=== PATIENT | male | born 1960 | race Caucasian/White ===

== ENCOUNTER → 2021-05-19 | Outpatient (CLI) | payer BC ==
--- NOTE | 2021-05-19 19:38 | CONS ---
CONSULTATION REASON FOR CONSULTATION: Sleep apnea. This is a very pleasant 60-year-old male patient was diagnosed having obstructive sleep apnea approximately 10 years ago. He follows up with Dr. Rodriguez , his primary care physician out of [place], [place]. During the course of the treatment, the patient has utilized 2 different CPAP machines and currently he is going through his second CPAP unit, which is a ResMed unit, a newer-generation ResMed APAP unit which is adjusted at a pressure minimum of 10, maximum of 15. He is also using a Mirage FX nasal mask. He is quite happy with the treatment. He is trying to establish himself in our office, knowing that he used to see a sleep specialist out of [place], [place]. He has no specific complaints. No snoring while on CPAP therapy. He is having some leaks around his nasal mask. I checked his compliance data, and based on a 30-day compliancy evaluation, the patient has utilized his machine for more than 4 hours 100% of the time, averaging around 7.9 hours of CPAP use per night. Average pressure delivered by the machine is around 12.6 cm of water. The leak has been on the order of 48 L/minute. His AHI is down to 0.8, indicating very successful treatment. His original diagnosis was established by [facility] and he gets his supplies through [facility], [place]. No recent weight gain. No hypersomnia or sleepiness. He goes to bed around 10 p.m., waking up at 9 a.m. in the morning. No drowsiness or sleepiness during the day. [place] score is only 7. No substance abuse. No alcoholism. No nocturnal chest pain, shortness of breath or restlessness in the lower extremities. No anxiety or depression. PAST MEDICAL HISTORY: LIZBETH, diabetes and hypertension. SURGICAL HISTORY: Surgical history includes knee surgery, shoulder repair and cholecystectomy. DRUG ALLERGIES: PENICILLIN. He is also allergic to BEE STINGS, and the patient carried with him an EpiPen. OUTPATIENT MEDICATION LIST: Outpatient medication list includes metformin 1 gram twice a day, 5, pioglitazone 30 mg 1 tablet a day, lisinopril 10 mg p.o. daily, Lipitor 20 mg p.o. daily, aspirin 81 mg p.o. daily, Pepcid 20 mg p.o. daily, naprosyn 220 mg on an as-needed basis. SOCIAL HISTORY: The patient is a nonsmoker. No history of alcoholism. No history of IV drugs. FAMILY HISTORY: Negative for any form of significant sleep breathing disorder. REVIEW OF SYSTEMS: Fourteen-point review of systems was done, and the positive findings are all mentioned above in the history of present illness. PHYSICAL EXAMINATION: VITAL SIGNS: BP is 130/81, pulse 79, respirations 16, temperature 97.4, saturation is 97% on room air. Height is 5 feet 11 inches, weight is 280. Neck size is 19 inches. [place] score is 7. BMI 39.8. GENERAL APPEARANCE: Calm, comfortable. HEAD: Atraumatic, normocephalic. NECK: Supple. No JVD. No goiter or neck masses. Mallampati class 4. LUNGS: Clear to auscultation. HEART: Heart sounds are regular rate and rhythm. Normal S1, S2. No S3, S4. No murmurs. ABDOMEN: Soft, nontender. No organomegaly. EXTREMITIES: No edema. No cyanosis or clubbing. NEUROLOGIC: Awake and alert. There is no focal neurological deficit. PSYCHIATRIC: Negative for anxiety or depression. IMPRESSION: 1. Obstructive sleep apnea, currently utilizing a ResMed APAP unit at a pressure minimum of 10, maximum of 15, utilizing a Metcalf FX nasal mask. 2. Chronic hypersomnia, recovered. 3. Diabetes mellitus. 4. Hypertension. PLAN: 1. Offer the patient an AirFit N20 unit, a medium-sized mask as an alternative for his Mirage FX. This should hopefully improve his leaks around the mask. 2. Encourage weight loss. 3. His treatment is essentially successful. There is no need for any further adjustment. Will send his refills through [facility]. Will obtain also a copy of his original polysomnogram. The patient will see me back in a year's time in followup. MMODL / IJN: [id number] /
== END ==
LOC: SLEEP 15:00
PROVIDERS: ATTEND Internal Medicine Critical Care Medicine
DX: G47.33 Obstructive sleep apnea (adult) (pediatric) (principal); E11.9 Type 2 diabetes mellitus without complications; I10 Essential (primary) hypertension; Z99.89 Dependence on other enabling machines and devices; Z79.84 Long term (current) use of oral hypoglycemic drugs; Z79.899 Other long term (current) drug therapy
CPT/HCPCS: 99202

== ENCOUNTER → 2022-06-01 | Outpatient (CLI) | payer BC ==
--- NOTE | 2022-06-01 15:35 | P.PN ---
Subjective Progress Note Date: 06/01/22 61-year-old male patient coming in for annual checkup regarding his obstructive sleep apnea. The patient has been diagnosed having LIZBETH more than 12 years ago. He has a functioning ResMed units which is an APAP unit set at a minimum pressure of 10 and maximum pressure pressure 15. He continues to use the machine and is very compliant. During his last visit, I switched him to a airfit N20 medium-sized nasal mask and the patient has been benefiting from the mask and he prefers it over previous although degeneration masks. I checked his compliance data and the patient has been utilizing his machine every night without any interruptions and he is achieving more than 4 hours of CPAP use 29 out of the past 30 days and this is based on the 30 day compliance check. His been averaging 07.9 hours of CPAP use for night and average pressure delivered by the machine is around 12.4 cm of water. His leak is 41 L per minute and his AHI is down to 0.6. He used to weigh around 180 pounds over the past one year he gained around 8 pounds and his current body weight is 288. No hypersomnia and sleepiness during the day. No spotting on the machine. No heartburn. No major hypersomnia or sleepiness. Does not take any naps during the day. No other new complaints otherwise for now. Objective - Exam BP is 167/94, also 70, respirations 16, temperature is at 61, oxygen saturation is around 97%, weight is 288 pounds, up 4 score is at 3, body mass index is 40.8. The patient appeared well nourished and normally developed. Vital signs as documented. Head exam is unremarkable. No scleral icterus or corneal arcus noted. Neck is without jugular venous distension, thyromegaly, or carotid bruits. Carotid upstrokes are brisk bilaterally. Lungs are clear to auscultation and percussion. Cardiac exam reveals the PMI to be normally sized and situated. Rhythm is regular. First and second heart sounds normal. No murmurs, rubs or gallops. Abdominal exam reveals normal bowel sounds, no masses, no organomegaly and no aortic enlargement. Extremities are nonedematous and both femoral and pedal pulses are normal.Examination of the skin revealed no evidence of significant rashes, suspicious appearing nevi or other concerning lesions.Neurologically, the patient is awake and alert and the patient does not have any focal neurological deficit. Cranial nerves are essentially intact. Assessment and Plan Plan: Symptomatic obstructive sleep apnea and the patient has been adequately treated with an APAP machine and the treatment is successful. No major hypersomnia and sleepiness during the day. Currently asymptomatic Chronic hypersomnia, improved on CPAP therapy and the patient's current [place] score is at 3 Obesity with a BMI of 40.8 Diabetes mellitus Hypertension Hyperlipidemia. Plan Continue APAP therapy pressure minimum of 10 and a maximum of 15 and will continue using the same mask interface , airfit N20 medium size, and refill in the supplies will be given. Encourage weight loss. Optimize sleep hygiene measures. Tight control of cardiovascular risk factors. Refills will. Be given on all of his supplies. The patient will see me back in one year's time in follow-up.
== END ==
LOC: SLEEP 14:23
PROVIDERS: ATTEND Internal Medicine Critical Care Medicine
DX: G47.33 Obstructive sleep apnea (adult) (pediatric) (principal); Z68.41 Body mass index [BMI] 40.0-44.9, adult; E11.9 Type 2 diabetes mellitus without complications; I10 Essential (primary) hypertension; E78.5 Hyperlipidemia, unspecified; Z99.89 Dependence on other enabling machines and devices

== ENCOUNTER → 2023-03-18 | Outpatient (CLI) | payer BC ==
--- NOTE | 2023-03-18 11:04 | CA ---
Exercise Nuclear Stress Test Report Name: Abdiel Early Exam Date: 03/18/2023 09:39 Exam Location: [place] Stress Ht (in): 70 Wt (lb): 280 BSA: 2.41 Ordering Phys: Patrick Shelley MD Referring Phys: Patrick Shelley MD Technologist: Tobias Gunn Age: 62 Gender: M : 1960 Procedure CPT: Indications: R07.9 CHEST PAIN ICD-10 Codes: Patient History: Medications: Meds past 24 hrs: Pretest Chest Pain: STRESS TEST Dez Protocol Exercise Duration (min:sec): 04:[address] Depressions (mm): Angina Score: Black Score: Resting HR (bpm): Peak HR (bpm): 152 Resting BP (mmHg): 118 / 73 Peak BP (mmHg): 196 / 70 MPHR: 156 Target HR: 133 % MPHR: 97 METS: 7.1 Total Dose: Peak Dose: Atropine: Double Product: 59130 BP Response: Stress Termination: TARGET HR REACHED/MAX EXERTION Stress Symptoms: DIFFICULTY IN BREATHING Stress Summary: ECG ANALYSIS Resting ECG: Normal sinus rhythm normal axis normal intervals Stress ECG: Patient exercised on Dez protocol for 4 minutes and 45 seconds achieving 85% of predicted maximal heart rate without chest pain or diagnostic ST segment depression CONCLUSIONS Poor exercise tolerance Negative stress test by EKG criteria Dr. Lior Reyes MD (Electronically Signed) Final Date: 18 March 2023 11:03
--- NOTE | 2023-03-18 12:41 | NM ---
EXAMINATION TYPE: NM stress cardiolite complete DATE OF EXAM: 03/18/2023 COMPARISON: NONE HISTORY: Family history hypertension TECHNIQUE: After the intravenous administration of 9.6 mCi Tc 99m Sestamibi - Cardiolite resting SPE CT images acquired 45 minutes post injection. At peak stress 25.6 mCi Tc 99m Sestamibi - Stress images obtained 12 minutes post injection The patient was stressed with 0.4mg Lexiscan. FINDINGS: There is diminished radiotracer accumulation within the mid Inferior lateral wall extending to the ca rdiac apex. This mass some improvement on the resting images compared to the stress images. Wall motion is normal Ejection fraction is calculated to be 55 %. IMPRESSION: 1. Stress-induced ischemic change along the inferior lateral wall at the cardiac apex.
== END | disposition home or self-care (01) ==
LOC: RADNMMAIN 07:49
PROVIDERS: ATTEND Family Medicine
DX: R07.9 Chest pain, unspecified (principal); I21.19 ST elevation (STEMI) myocardial infarction involving other coronary artery of inferior wall; Z82.49 Family history of ischemic heart disease and other diseases of the circulatory system
CPT/HCPCS: 93017; 78452; A9500

== ENCOUNTER → 2023-04-12 | Outpatient (CLI) | payer BC ==
--- NOTE | 2023-04-12 15:50 | P.PN ---
Progress Note - Text Progress Note Date: 04/12/23 61-year-old male patient coming in for annual checkup regarding his obstructive sleep apnea. The patient has been diagnosed having LIZBETH more than 10 years ago. He has a functioning ResMed units which is an APAP unit set at a minimum pressure of 10 and maximum pressure pressure 15. He continues to use the machine and is very compliant. He is currently using the airfit N20 medium- sized nasal mask and the patient has been benefiting from the mask . The patient is very much interested in updating his CPAP unit. His breathing the same machine for the past 5 years. He is extremely compliant to his CPAP machine which is an APAP mode pressures of 10/15 cm of water. The patient has been utilizing the machine every night and his compliancy for more than 4 hours is in the order of 100% and the patient has been averaging about 8.3 hours of CPAP use per night and average pressure delivered by the machines around 11.5 cm of water. His leak is in order of 40 L/m and his AHI is down to 0.6 indicating excellent a successful therapy. He has no hypersomnia or sleepiness during the day. His [place] score is down to 8. His weight is 277. No significant weight loss or weight gain over the past one year. No new onset comorbidities. The patient has no issues with congestion heart failure, myocardial infarction, atrial fibrillation or stroke. - Exam BP is 136/86, pulse is 72, respirations 18 and a temperature is 98.0 and oxygen saturations 94% on room air oxygen. Weight is 277, [place] score is at 8. The patient appeared well nourished and normally developed. Vital signs as documented. Head exam is unremarkable. No scleral icterus or corneal arcus noted. Neck is without jugular venous distension, thyromegaly, or carotid bruits. Carotid upstrokes are brisk bilaterally. Lungs are clear to auscultation and percussion. Cardiac exam reveals the PMI to be normally sized and situated. Rhythm is regular. First and second heart sounds normal. No murmurs, rubs or gallops. Abdominal exam reveals normal bowel sounds, no masses, no organomegaly and no aortic enlargement. Extremities are nonedematous and both femoral and pedal pulses are normal.Examination of the skin revealed no evidence of significant rashes, suspicious appearing nevi or other concerning lesions.Neurologically, the patient is awake and alert and the patient does not have any focal neurological deficit. Cranial nerves are essentially intact. Plan: Symptomatic obstructive sleep apnea and the patient has been adequately treated with an APAP machine and the treatment is successful. No major hypersomnia and sleepiness during the day. Currently asymptomatic. The patient qualifies for her new CPAP unit. A prescription will be given for this patient to obtain a ResMed 11 at the same pressure settings of 10/15 cm of water and the prescription will be sent to [facility]. We'll keep the same mask interface. Chronic hypersomnia, improved on CPAP therapy and the patient's current [place] score is a8 weight of 277 pounds Obesity with a BMI of 40.8 Diabetes mellitus Hypertension Hyperlipidemia. Plan Continue APAP therapy pressure minimum of 10 and a maximum of 15 and will continue using the same mask interface , airfit N20 medium size, and refill in the supplies will be given. Encourage weight loss. Optimize sleep hygiene measures. Tight control of cardiovascular risk factors. Refills will. The patient will be given a prescription for a ResMed 11 same settings and the same mask interface. If he is able to obtain a new CPAP unit, the patient was seen back for an earlier follow-up within 30-90 days.
== END ==
LOC: 3 N SLEEP 15:33
PROVIDERS: ATTEND Internal Medicine Critical Care Medicine
DX: G47.10 Hypersomnia, unspecified (principal); E11.9 Type 2 diabetes mellitus without complications; E66.9 Obesity, unspecified; I10 Essential (primary) hypertension; E78.5 Hyperlipidemia, unspecified; Z99.89 Dependence on other enabling machines and devices; Z68.41 Body mass index [BMI] 40.0-44.9, adult
CPT/HCPCS: 99212

== ENCOUNTER → 2023-05-25 | Outpatient (CLI) | payer BC ==
[2023-05-25 16:38] LABS: HGB 14.3 d/dL (13.0-17.0); MCH 29.1 pg (27.0-32.0); MCHC 32.5 d/dL (32.0-37.0); MCV 89.6 FL (80.0-97.0); Mean Platelet Volume 11.8 FL (9.5-12.2); NRBC Per 100 WBC 0 X 10*3/uL (0.00-0.01); Platelet Count 214 X 10*3/uL (140-440); RBC 4.91 X 10*6/uL (4.40-5.60); RDW 13.3 % (11.5-14.5); WBC 7.12 X 10*3/uL (4.50-10.00)
[2023-05-25 18:41] LABS: Blood Urea Nitrogen 17.1 mg/dL (9.0-27.0); Chloride 104 mmol/L (96-109); Potassium 4.6 mmol/L (3.5-5.5); Sodium 138 mmol/L (135-145)
== END | disposition home or self-care (01) ==
LOC: LABPAT 11:25
PROVIDERS: ATTEND Student in an Organized Health Care Education/Training Program
DX: Z01.812 Encounter for preprocedural laboratory examination (principal); R07.9 Chest pain, unspecified
CPT/HCPCS: 80051; 82565; 84520; 85027

== ENCOUNTER → 2023-07-27 | Outpatient (CLI) | payer BC ==
[2023-07-27 17:12] LABS: HCT 45.8 % (39.6-50.0); HGB 15.2 g/dL (13.0-17.0); MCH 29.3 pg (27.0-32.0); MCHC 33.2 g/dL (32.0-37.0); MCV 88.2 FL (80.0-97.0); Mean Platelet Volume 11.9 FL (9.5-12.2); NRBC Per 100 WBC 0 X 10*3/uL (0.00-0.01); Platelet Count 161 X 10*3/uL (140-440); RBC 5.19 X 10*6/uL (4.40-5.60); RDW 13.4 % (11.5-14.5); WBC 9.23 X 10*3/uL (4.50-10.00)
[2023-07-27 17:23] LABS: BUN/Creat Ratio 9.92 Ratio (12.00-20.00); Blood Urea Nitrogen 12.9 mg/dL (9.0-27.0); Calcium 9.8 mg/dL (8.7-10.3); Chloride 102 mmol/L (96-109); Glucose 125 mg/dL (70-110); LDL Cholesterol,Calculated 59.5 mg/dL (0.0-131.0); Potassium 4.6 mmol/L (3.5-5.5); Sodium 138 mmol/L (135-145)
== END | disposition home or self-care (01) ==
LOC: LABWHC1 10:11
PROVIDERS: ATTEND Student in an Organized Health Care Education/Training Program
DX: E11.9 Type 2 diabetes mellitus without complications (principal); E78.5 Hyperlipidemia, unspecified
CPT/HCPCS: 36415; 80048; 80061; 83036; 85027